=== PATIENT | female | born 1960 | race Caucasian/White ===

== ENCOUNTER 2017-05-15 19:34 | Emergency (ER) | payer OTHER ==
[~2017-05-15] VITALS: Ht 157.5 cm; Wt 77.2 kg
[2017-05-15 19:44] VITALS: Ht 157.5 cm; Wt 77.2 kg
--- NOTE | 2017-05-15 20:37 | ERD ---
ER Documentation Chief Complaint Chief Complaint lower back pain/painful, blood in urine x 2 days HPI This 56 yo diabetic female reports 3 days hx of dysuria , hematuria today and left sided flank pain , pt reports that BS are controlled and she takes medication as prescribed. , denies fever reports chills ROS All systems reviewed and are negative except as per history of present illness. Allergies Allergies: Coded Allergies: No Known Drug Allergies (Verified Allergy, Unknown, 05/15/17) PMhx/Soc Medical and Surgical Hx: pt denies Medical Hx, pt denies Surgical Hx History of Surgery: No Anesthesia Reaction: No Hx Neurological Disorder: No Hx Respiratory Disorders: No Hx Cardiac Disorders: No Hx Psychiatric Problems: No Hx Miscellaneous Medical Probl: No Hx Alcohol Use: No Hx Substance Use: No Hx Tobacco Use: No Smoking Status: Never smoker Physical Exam Vitals Vital Signs Date Time Temp Pulse Resp B/P Pulse Ox O2 Delivery O2 Flow Rate FiO2 05/15/17 19:44 97.7 74 20 156/87 98 Physical Exam Const: Well-nourished well-hydrated well-appearing 57-year-old female no acute distress ENT: Normal External Ears, Nose and Mouth. Abd: Soft, knees, bladder tenderness, no CVA tenderness Back: No midline or flank tenderness Neur: Awake and alert Psych: Normal Mood and Affect Results 24 hrs Laboratory Tests Test 05/15/17 20:41 05/15/17 21:01 Urine Color YELLOW Urine Clarity CLEAR Urine pH 6.[address] 1.016 Urine Ketones NEGATIVEmg/dL Urine Nitrite NEGATIVEmg/dL Urine Bilirubin NEGATIVEmg/dL Urine Urobilinogen NEGATIVEmg/dL Urine Leukocyte Esterase 3+Andrae/ul Urine Microscopic RBC 1/HPF Urine Microscopic WBC 51/HPF Urine Bacteria FEW/HPF Urine Hemoglobin NEGATIVEmg/dL Urine Glucose NEGATIVEmg/dL Urine Total Protein NEGATIVEmg/dl Bedside Urine pH (LAB) 6.5 Bedside Urine Protein (LAB) Negative Bedside Urine Glucose (UA) Negative Bedside Urine Ketones (LAB) Negative Bedside Urine Blood Negative Bedside Urine Nitrite (LAB) Negative Bedside Urine Leukocyte Esterase (L 1+ Current Medications Medications (Trade) Dose Ordered Sig/Rosemary Route PRN Reason Start Time Stop Time Status Last Admin Dose Admin Acetaminophen (Tylenol Tab) 650 mg ONCE ONCE PO 05/15/17 21:00 05/15/17 21:01 DC 12/2/17 20:55 Procedures/MDM This 57-year-old female presents to emergency department for evaluation of dysuria, back pain, symptoms started 3 days ago. Patient reports hematuria started today, patient reports left-sided flank pain, denies fever reports chills. Emergency room course includes history and physical exam, your urinalysis, positive for evidence of leukocytosis, plan to treat for urinary tract infection with Macrobid 100 mg twice daily 10 days, Pyridium 200 mg 1 tab p.o. 3 times daily 3 days. Increase fluids, increase rest, follow-up with primary care physician for reassessment after antibiotic course is complete, return to emergency department if symptoms fail to improve as anticipated. Fever, chills, inability to void. Patient is stable with no new complaints during ER course, clinically there is no current evidence to suggest meningitis , sepsis, acute abdomen, acute coronary syndromes, pyelonephritis or any other emergent condition appearing to require further evaluation or hospitalization. I feel the patient is stable for discharge at this time. I have discussed results, examination findings, the treatment plan with the patient and family present prior to discharge. Indications for emergent reevaluation, side effects of medication were also discussed. All questions were answered. Patient verbalizes understanding and agrees with plan of care. Departure Diagnosis: Primary Impression: UTI (urinary tract infection) Urinary tract infection type: acute cystitis Hematuria presence: without hematuria Qualified Code: N30.00 - Acute cystitis without hematuria Condition: Good Patient Instructions: Understanding Urinary Tract Infections (UTIs) Additional Instructions: Thank you for for coming to [facility] for your care today. Please ask your nurse or provider if you have questions about your care today and do not leave until all your questions have been answered. Please use any medications given as directed and follow-up with your doctor (or the doctor you were referred to) in the next 2-3 days. If you do not have a primary care doctor you may follow up at the [facility] (listed below). You may also use motrin and tylenol as needed for fever and/or pain unless instructed otherwise by your provider or nurse. Indications for more urgent follow-up have been discussed, but you may return to the Emergency Department at ANY time for any worrisome or worsening symptoms. If you have abdominal pain, please know that no test or exam you received is perfect and you should follow up within 8 hours for continued pain. If you had any imaging studies today, such as an X-Ray or CT Scan, these studies will be reviewed later by a radiologist. You will be called if there are important findings that were not identified today, so make sure the contact information you provided at registration is correct. If you received any narcotic pain control medicine today, such as Vicodin, Morphine or Dilaudid, your coordination and judgment may be affected for a number of hours. Please do not drive or operate heavy machinery, and you may want someone to assist you at home. If you were given a prescription for narcotic medication, be aware that it is very addictive- use sparingly and only if necessary. MATT MCLAUGHLIN May 15, 2017 20:37
[2017-05-15] MEDS ORDERED: ACETAMINOPHEN 325 MG TAB PO ONE (21:00)
[2017-05-15 21:01] LABS: URINE BLOOD (Dip) POC Negative (NEGATIVE)
[2017-05-15 21:56] LABS: ADD UMIC YES; UR ASCORBIC ACID NEGATIVE (NEGATIVE); UR BACTERIA FEW /HPF (NONE SEEN); UR BILIRUBIN (Dip) NEGATIVE (NEGATIVE); UR BLOOD (Dip) NEGATIVE (NEGATIVE); UR CLARITY CLEAR (CLEAR); UR COLOR YELLOW (YELLOW); UR GLUCOSE (Dip) NEGATIVE (NEGATIVE); UR KETONES (Dip) NEGATIVE (NEGATIVE); UR LEUKOCYTE ESTERASE (Dip) 3+ Leu/ul (NEGATIVE); UR NITRITE (Dip) NEGATIVE (NEGATIVE); UR RBC 1 /HPF (0-5); UR SPECIFIC GRAVITY (Dip) 1.016 (1.003-1.030); UR TOTAL PROTEIN (Dip) NEGATIVE (NEGATIVE); UR UROBILINOGEN (Dip) NEGATIVE (NEGATIVE)
[2017-05-15] MEDS ORDERED: NITR-58 PO (23:25)
[2017-05-15] MEDS ORDERED: PHEN-538 PO (23:26)
== END 2017-05-15 23:34 | disposition home or self-care (01) ==
LOC: FTE 19:34
DX: N30.00 Acute cystitis without hematuria (principal)
CPT/HCPCS: 81001; Z7502; Z7610; 81003; 99283